=== PATIENT | male | born 1960 | race Caucasian/White ===

== ENCOUNTER 2022-04-03 08:16 | Day surgery (SDC) | payer OTHER ==
[~2022-04-03 08:16] MED LIST: Albuterol 0.083% 2.5 MG/3 ML Neb Soln NEB PRN; HYDROmorphone 1 MG/ML Syringe IVPUSH PRN; Lactated Ringers 1,000 ML IV SCH; Lidocaine 2% 5 ML SDV ONE; Metoclopramide 10 MG/2 ML SDV IVPUSH PRN; Morphine 4 MG/ML VIAL IVPUSH PRN; Naloxone 0.4 MG/ML SDV IVPUSH PRN; Ondansetron 4 MG/2 ML SDV IVPUSH PRN; Ropivacaine 0.5% 5 MG/ML 30 ML SDV ONE; ceFAZolin 2 GM in Premix Bag 1 BAG IV SCH; fentaNYL 100 MCG/2 ML SDV IVPUSH PRN; fentaNYL 100 MCG/2 ML SDV ONE
[2022-04-03] MEDS ORDERED: Propofol 200 MG/20 ML SDV ONE (09:12)
[2022-04-03] MEDS ORDERED: fentaNYL 100 MCG/2 ML SDV ONE (09:23)
[2022-04-03] MEDS ORDERED: Bupivacaine 0.25%/EPINEPHrine 1:200,000 10 ML SDV ONE (09:27)
[2022-04-03] MEDS ORDERED: Octyl 2-Cyanoacrylate 1 Tube ONE (09:27)
[2022-04-03] MEDS ORDERED: Ketorolac 30 MG/ML SDV ONE (10:36)
[2022-04-03] MEDS ORDERED: Dexamethasone 4 MG/ML 5 ML MDV ONE (10:36)
[2022-04-03] MEDS ORDERED: Ondansetron 4 MG/2 ML SDV ONE (10:36)
== END 2022-04-03 12:15 | disposition home or self-care (01) ==
LOC: MW.SDS 08:16
PROVIDERS: ATTEND Orthopaedic Surgery
DX: S83.231A Complex tear of medial meniscus, current injury, right knee, initial encounter (principal); I10 Essential (primary) hypertension; E78.00 Pure hypercholesterolemia, unspecified; E66.9 Obesity, unspecified; Z68.35 Body mass index [BMI] 35.0-35.9, adult; Z79.899 Other long term (current) drug therapy; X58.XXXA Exposure to other specified factors, initial encounter
CPT/HCPCS: 29881; J0690; J1100; J1885; J2405; J2704; J2795; J3010; J3490; J7120; 01400; 64450; 76942; A9270-GY

== ENCOUNTER 2023-07-14 12:21 | Day surgery (SDC) | payer BC, OTHER ==
[~2023-07-14 12:21] MED LIST changes: -Albuterol 0.083% 2.5 MG/3 ML Neb Soln NEB PRN; -HYDROmorphone 1 MG/ML Syringe IVPUSH PRN; -Lidocaine 2% 5 ML SDV ONE; -Metoclopramide 10 MG/2 ML SDV IVPUSH PRN; -Morphine 4 MG/ML VIAL IVPUSH PRN; -Naloxone 0.4 MG/ML SDV IVPUSH PRN; -Ondansetron 4 MG/2 ML SDV IVPUSH PRN; -Ropivacaine 0.5% 5 MG/ML 30 ML SDV ONE; -ceFAZolin 2 GM in Premix Bag 1 BAG IV SCH; -fentaNYL 100 MCG/2 ML SDV IVPUSH PRN; -fentaNYL 100 MCG/2 ML SDV ONE; +propofoL 50 ML ONE
[2023-07-14] MEDS ORDERED: Lactated Ringers 1,000 ML IV SCH (14:15)
== END 2023-07-14 15:00 | disposition home or self-care (01) ==
LOC: MW.SDS 12:21
PROVIDERS: ATTEND Surgery
DX: Z12.11 Encounter for screening for malignant neoplasm of colon (principal); D12.2 Benign neoplasm of ascending colon; D12.5 Benign neoplasm of sigmoid colon; K63.5 Polyp of colon; K62.1 Rectal polyp; K57.30 Diverticulosis of large intestine without perforation or abscess without bleeding; I10 Essential (primary) hypertension; E78.00 Pure hypercholesterolemia, unspecified; Z79.899 Other long term (current) drug therapy; Z98.890 Other specified postprocedural states
CPT/HCPCS: 45380; J2704; J7120

== ENCOUNTER 2025-08-05 15:00 | Emergency (ER) | payer MEDICARE ==
[2025-08-05 15:39] LABS: BASOPHILS ABSOLUTE AUTO 0.07 K/uL (0.00-0.20); BASOPHILS PERCENT AUTO 0.6 % (0.0-1.0); EOSINOPHILS ABSOLUTE AUTO 0.47 K/uL (0.00-0.45); EOSINOPHILS PERCENT AUTO 4.3 % (0.0-6.0); IMMATURE GRAN ABSOLUTE AUTO 0.04 K/uL (0.00-0.05); IMMATURE GRAN PERCENT AUTO 0.4 % (0.0-0.4); LYMPHOCYTES ABSOLUTE AUTO 2.63 K/uL (1.00-4.80); LYMPHOCYTES PERCENT AUTO 24.1 % (24.0-44.0); MEAN PLATELET VOLUME 9.4 fL (9.4-12.4); MONOCYTES ABSOLUTE AUTO 0.90 K/uL (0.00-0.80); MONOCYTES PERCENT AUTO 8.2 % (0.0-8.0); NEUTROPHILS ABSOLUTE AUTO 6.82 K/uL (1.80-7.70); NEUTROPHILS PERCENT AUTO 62.4 % (41.0-71.0); NRBC ABSOLUTE 0.00 K/uL (0.00-0.02); NRBC PERCENT 0.0 /100WBC (0.0-0.2); PLATELET COUNT,PLT 324 K/uL (150-400); RED BLOOD CELL COUNT 4.84 M/uL (4.52-5.90); WHITE BLOOD CELL COUNT,WBC 10.93 K/uL (3.9-11.3)
[2025-08-05 16:26] LABS: A/G RATIO 1.2 (0.9-1.6); ALANINE AMINOTRANSFERASE,ALT 40.0 IU/L (14-63); ASPARTATE AMNIOTRANSFERASE,AST 27.0 IU/L (15-37); BILIRUBIN TOTAL 0.5 mg/dL (0.2-1.0); BLOOD UREA NITROGEN,BUN 16.0 mg/dL (7.0-18.0); CARBON DIOXIDE,CO2 29.4 mmol/L (21.0-32.0); CHLORIDE,CL 103.0 mmol/L (98-107); CREATININE 1.2 mg/dL (0.8-1.3); EST CRCL DRUG DOSING (CG) 63.37 mL/min; GLUCOSE RANDOM 104.0 mg/dL (74-106); POTASSIUM,K 3.9 mmol/L (3.5-5.1); PROTEIN TOTAL,TP 7.4 g/dL (6.4-8.2); SODIUM,NA 140.0 mmol/L (136-148)
[2025-08-05 16:27] LABS: ESTIMATED GFR 67.0 mL/min (>60)
== END 2025-08-05 16:57 | disposition home or self-care (01) ==
LOC: MW.ED 15:00
DX: R19.7 Diarrhea, unspecified (principal); I10 Essential (primary) hypertension; Z75.3 Unavailability and inaccessibility of health-care facilities; Z79.899 Other long term (current) drug therapy
CPT/HCPCS: 36415; 80053; 83735; 85025; 99283; 99284